=== PATIENT | female | born 1940 | race Caucasian/White ===

== ENCOUNTER 2016-11-20 21:50 | Inpatient (IN) | payer MEDICARE, MEDICAID ==
[~2016-11-20] VITALS: Ht 154.9 cm; Wt 81.4 kg
[2016-11-20 21:50] VITALS: BP_SYST 118
[2016-11-20] MEDS ORDERED: ASPIRIN 81 MG TAB.CHEW PO ONE (22:45)
[2016-11-20 23:19] LABS: BASOPHILS # (AUTO) 0.1 K/uL (0.0-0.2); BASOPHILS % (AUTO) 0.8 % (0.0-2.0); EOSINOPHILS # (AUTO) 0.2 K/uL (0.0-0.4); EOSINOPHILS % (AUTO) 3.3 % (0.0-4.0); HEMATOCRIT 42.7 % (36-48); HEMOGLOBIN 13.7 g/dL (12.0-16.0); LYMPHOCYTES # (AUTO) 1.5 K/uL (1.0-5.5); LYMPHOCYTES % (AUTO) 22.4 % (20.5-51.5); MEAN CORPUSCULAR HEMOGLOBIN 31 pg (27-31); MEAN CORPUSCULAR HGB CONC 32 % (32-36); MEAN CORPUSCULAR VOLUME 96 fL (79.0-98.0); MONOCYTES # (AUTO) 0.7 K/uL (0.0-1.0); MONOCYTES % (AUTO) 9.9 % (1.7-9.3); NEUTROPHILS # (AUTO) 4.2 K/uL (1.8-7.7); NEUTROPHILS % (AUTO) 63.6 % (40.0-70.0); PLATELET COUNT (AUTO) 210 K/uL (130-430); RED BLOOD CELL COUNT(AUTO) 4.46 MIL/uL (4.2-6.2); RED CELL DISTRIBUTION WIDTH 13.2 % (9.0-15.0); WHITE BLOOD COUNT (AUTO) 6.8 K/uL (4.8-10.8)
[2016-11-20 23:28] LABS: ANION GAP 4 (5-15); CALCIUM 8.8 mg/dL (8.4-11.0); CHLORIDE 105 mmol/L (98-107); CREATININE 0.99 mg/dL (0.55-1.30); GLUCOSE 115 mg/dL (70-99); POTASSIUM 3.5 mmol/L (3.5-5.1); SODIUM SERUM 141 mmol/L (136-145); UREA NITROGEN, BLOOD 18 mg/dL (8-21)
[2016-11-20 23:32] LABS: ALANINE AMINOTRANSFERASE 29 U/L (12-78); ALBUMIN 3.8 g/dL (3.4-4.8); ASPARTATE AMINOTRANSFERASE 22 U/L (10-37); CREATINE KINASE, TOTAL 53 U/L (26-192); TOTAL BILIRUBIN 0.4 mg/dL (0.0-1.0); TOTAL PROTEIN, SERUM 7.6 g/dL (6.4-8.3)
[2016-11-20 23:50] LABS: BILIRUBIN,URINE NEGATIVE (NEGATIVE); BLOOD, URINE NEGATIVE (NEGATIVE); CLARITY/URINE CLEAR (CLEAR); COLOR,URINE YELLOW (YELLOW); GLUCOSE,URINE NEGATIVE (NEGATIVE); KETONES,URINE NEGATIVE (NEGATIVE); LEUKOCYTE ESTERASE ,URINE TRACE (NEGATIVE); NITRITE, URINE NEGATIVE (NEGATIVE); PH,URINE 5.5 (5.0-8.0); PROTEIN URINE NEGATIVE (NEGATIVE); UROBILINOGEN,URINE 0.2 (0.2-1.0)
[2016-11-20 23:51] LABS: INR 0.9 (0.8-1.2)
[2016-11-21] VITALS (7 sets, daily range): BP systolic 104–135
[2016-11-21 00:10] LABS: BACTERIA,URINE MODERATE /HPF (None Seen); MUCUS,URINE None Seen /LPF (None Seen); RBC,URINE 0-3 /HPF (0-3)
[2016-11-21] MEDS ORDERED: ENOXAPARIN SODIUM 80 MG/0.8 ML SYRINGE SUBCUT ONE (00:15)
[2016-11-21] MEDS ORDERED: BENA20TA2 PO (00:19)
[2016-11-21] MEDS ORDERED: AMI200 PO (00:20)
[2016-11-21] MEDS ORDERED: FURO-149 PO (00:20)
[2016-11-21] MEDS ORDERED: LIP20 PO (00:21)
[2016-11-21] MEDS ORDERED: POTA-118 PO (00:21)
[2016-11-21] MEDS ORDERED: LEVO100T9 PO (00:22)
[2016-11-21] MEDS ORDERED: FLUT1DIS3 INH (00:22)
[2016-11-21] MEDS ORDERED: ALBU8.5H8 INH (00:23)
[2016-11-21] MEDS ORDERED: ASPI-1063 PO (00:25)
[2016-11-21] MEDS ORDERED: ALBU2.5V7 INH (00:25)
[2016-11-21] MEDS ORDERED: FAMO20TA8 PO (00:26)
[2016-11-21] MEDS ORDERED: IBUP-1969 PO (00:27)
[2016-11-21] MEDS ORDERED: ALLO100T PO (00:28)
[2016-11-21] MEDS ORDERED: HYDR-3698 PO (00:28)
[2016-11-21] MEDS ORDERED: MONT10TA25 PO (00:29)
[2016-11-21] MEDS ORDERED: TRAM50TA92 PO (00:32)
[2016-11-21] MEDS ORDERED: DOCU-144 PO (00:32)
[2016-11-21] MEDS: ASPIRIN 325 MG TABLET PO SCH (08:20)
[2016-11-21] MEDS ORDERED: IPRATROPIUM BROM 0.5 MG/2.5 ML VIAL.NEB (ATROVENT) INH PRN (08:30)
[2016-11-21] MEDS ORDERED: ALBUTEROL SULFATE 0.083% 2.5 MG/3 ML VIAL.NEB INH PRN (08:30)
[2016-11-21] MEDS ORDERED: FLUTICASONE/VILANTEROL 1 EACH BLST.W.DEV INH SCH (09:00)
[2016-11-21] MEDS ORDERED: FLUTICASONE 250 mCg/SALMETEROL 50 mCg DISKUS W.DEV INH PRN (10:00)
[2016-11-21] MEDS: ALBUTEROL SULFATE 0.083% 2.5 MG/3 ML VIAL.NEB INH SCH ×3 (11:08→23:00)
[2016-11-21] MEDS: IPRATROPIUM BROM 0.5 MG/2.5 ML VIAL.NEB (ATROVENT) INH SCH ×3 (11:08→23:00)
[2016-11-21] MEDS: ACETAMINOPHEN 325 MG TABLET PO PRN (22:35)
[2016-11-22 01:39] VITALS: BP_SYST 98
[2016-11-22 04:30] VITALS: BP_SYST 122
[2016-11-22] MEDS ORDERED: MORPHINE 2 MG/ML INJ. SYRINGE IVP PRN (06:00)
[2016-11-22] MEDS ORDERED: LEVOTHYROXINE SODIUM 0.1 MG TABLET PO SCH (07:00)
[2016-11-22] MEDS: IPRATROPIUM BROM 0.5 MG/2.5 ML VIAL.NEB (ATROVENT) INH SCH ×3 (07:03→15:33)
[2016-11-22] MEDS: ALBUTEROL SULFATE 0.083% 2.5 MG/3 ML VIAL.NEB INH SCH ×3 (07:04→15:33)
[2016-11-22 07:46] LABS: ALANINE AMINOTRANSFERASE 25 U/L (12-78); ALBUMIN 3.1 g/dL (3.4-4.8); ANION GAP 3 (5-15); ASPARTATE AMINOTRANSFERASE 21 U/L (10-37); CALCIUM 8.9 mg/dL (8.4-11.0); CHLORIDE 107 mmol/L (98-107); CHOLESTEROL 151 mg/dL (<200); CREATININE 0.66 mg/dL (0.55-1.30); GLUCOSE 100 mg/dL (70-99); HDL CHOLESTEROL 64 mg/dL (>55); LDL CHOLESTEROL 60 mg/dL (<100); POTASSIUM 4.3 mmol/L (3.5-5.1); SODIUM SERUM 142 mmol/L (136-145); THYROID STIMULATING HORMONE 0.03 uIu/mL (0.34-4.82); TOTAL BILIRUBIN 0.4 mg/dL (0.0-1.0); TOTAL PROTEIN, SERUM 6.5 g/dL (6.4-8.3); TRIGLYCERIDES 143 mg/dL (30-150); UREA NITROGEN, BLOOD 14 mg/dL (8-21)
[2016-11-22] MEDS ORDERED: DOCUSATE SODIUM 100 MG CAPSULE PO SCH (09:00)
[2016-11-22] MEDS ORDERED: FUROSEMIDE 40 MG TABLET PO SCH (09:00)
[2016-11-22] MEDS ORDERED: ATORVASTATIN 20 MG TABLET PO SCH (09:00)
[2016-11-22] MEDS ORDERED: BENAZEPRIL HCL 20 MG TABLET (LOTENSIN) PO SCH (09:00)
[2016-11-22] MEDS ORDERED: REGADENOSON 0.4 MG/5 ML SYRINGE IVP ONE (09:00)
[2016-11-22] MEDS ORDERED: MONTELUKAST 10 MG TABLET PO SCH (09:00)
[2016-11-22] MEDS ORDERED: AMIODARONE HCL 200 MG TABLET PO SCH (09:00)
[2016-11-22] MEDS ORDERED: ASPIRIN 81 MG TABLET(ECOTRIN) PO SCH (09:00)
[2016-11-22] MEDS ORDERED: FAMOTIDINE 20 MG TABLET PO SCH (09:00)
[2016-11-22] MEDS ORDERED: ALLOPURINOL 100 MG TABLET (ZYLOPRIM) PO SCH (09:00)
[2016-11-22] MEDS ORDERED: POTASSIUM CHLORIDE 10 MEQ TAB.PRT.SR PO SCH (09:00)
[2016-11-22 11:36] VITALS: BP_SYST 130
[2016-11-22] MEDS: ASPIRIN 325 MG TABLET PO SCH (12:47)
[2016-11-22] MEDS: ACETAMINOPHEN 325 MG TABLET PO PRN (12:48)
[2016-11-22 15:34] VITALS: BP_SYST 109
[2016-11-22 17:52] VITALS: BP_SYST 109
== END 2016-11-22 18:21 | disposition home or self-care (01) | DRG 313 ==
LOC: SED 21:50 → STU 11-21 00:47
PROVIDERS: ADMIT Internal Medicine Hospice and Palliative Medicine; ATTEND Internal Medicine Hospice and Palliative Medicine
DX: R07.89 Other chest pain (principal); J44.9 Chronic obstructive pulmonary disease, unspecified; I10 Essential (primary) hypertension; E03.9 Hypothyroidism, unspecified; I48.2 Chronic atrial fibrillation; E66.9 Obesity, unspecified; Z68.33 Body mass index [BMI] 33.0-33.9, adult
CPT/HCPCS: 36415; 71010; 80053; 80061; 81000-TC; 82550-TC; 83605; 83880; 84443-TC; 84484; 85025; 85379; 85610-TC; 87040-TC; 87086; 93005; 93017; 93306; 94640; 94760; 96372; 99285; A9500; J1650; J2270; J2785